=== PATIENT | female | born 1950 | race Caucasian/White ===

== ENCOUNTER 2016-12-12 00:40 | Observation (INO) | payer MEDICARE, OTHER ==
[2016-12-12 01:57] LABS: Troponin I 0.087 ng/mL (< 0.028)
[2016-12-12] MEDS ORDERED: Enoxaparin Sodium 80 MG/0.8 ML SYRINGE ONE (02:30)
[2016-12-12] MEDS ORDERED: HYDROcodone/Acetaminophen 5/325 mg Tablet PO PRN (03:05)
[2016-12-12] MEDS ORDERED: HYDROcodone/Acetaminophen 10/325 mg Tablet PO PRN (03:05)
[2016-12-12] MEDS ORDERED: Ondansetron ODT 4 MG TAB PO PRN (03:05)
[2016-12-12] MEDS ORDERED: Acetaminophen 325 MG TAB PO PRN (03:05)
[2016-12-12 03:27] LABS: #Basophils 0.1 thou/uL (0.0-0.2); #Eosinphils 0.1 thou/uL (0.0-0.7); #Lymphocytes 3.9 thou/uL (1.20-3.40); #Monocytes 0.9 thou/uL (0.11-0.59); %Eosinophils 1.1 % (0.0-10.0); %Lymphocytes 35.2 % (21.0-51.0); %Monocytes 7.9 % (0.0-10.0); Hematocrit 45.5 % (36.0-47.0); Mean Platelet Volume 6.9 fL (7.4-10.4); Red Blood Cell (RBC) Count 4.98 mill/uL (4.20-5.40); White Blood Cell (WBC) Count 10.9 thou/uL (4.8-10.8)
[2016-12-12 03:33] VITALS: BMI 28.7
[2016-12-12 03:40] LABS: Anion Gap 15 mmol/L (10-20); BUN (Urea Nitrogen) 18 mg/dL (9.8-20.1); Calc. Creatinine Clearance 77 mL/min (70-130); Calcium 10.2 mg/dL (7.8-10.44); Carbon Dioxide 25 mmol/L (23-31); Chloride 106 mmol/L (98-107); Estimated GFR-MDRD 61
[2016-12-12 03:46] LABS: Troponin I 0.098 ng/mL (< 0.028)
[2016-12-12] MEDS ORDERED: Nitroglycerin 2% Ointment 1 INCH/1 GM Packet TOP SCH (06:00)
[2016-12-12 08:30] VITALS: BP 115/60; TEMP 97.4
[2016-12-12] MEDS ORDERED: Aspirin 325 MG TAB PO SCH (09:00)
[2016-12-12] MEDS ORDERED: Metoprolol Tartrate 25 MG TAB PO SCH (09:00)
[2016-12-12] MEDS ORDERED: Famotidine/PF 20 mg/2ml Vial SLOW IVP SCH (09:00)
--- NOTE | 2016-12-12 09:24 | HP ---
DATE OF ADMISSION: 12/12/2016 PRIMARY CARE PHYSICIAN: Dr. Anabell Slaughter. PRIMARY UROLOGY TEACHER: Dr. Jesus Jones at [facility]. CHIEF COMPLAINT: Fast heart rate. HISTORY OF PRESENT ILLNESS: Ms. James a 66-year-old [place] female with a history of paroxysmal ta chyarrhythmia of unknown etiology, cardiomyopathy. She thinks hypertrophic, and diabetes mellitus, type 2, and now subclinical after weight loss. She presents to the Emergency Department in [place] today with complaints of palpitations. She typically has spells which will have 1 to 2 minutes long episodes of feeling her heart race, but it will spontaneously resolve. Tonight, it persisted for over an hour. She knows that it initially started up in the 130s, did freddy p down to 120s and thought it was over. It continued and got as high as the mid 150s. She develope d some chest tightness with radiation up into her right neck and right jaw. She has some shortness of breath, without nausea, vomiting, or diaphoresis. This worried her, so [facility]. She has been on a trip to [place] in the last few weeks. There was concern that maybe she had got bl ood clot that caused a problem. She denies any fevers or chills, no diarrhea or constipation, is no w spontaneously resolved, and has heart rate in the 60s and regular. She does have a headache in th e bitemporal region that is constant and rated at 2 to 3/10. No visual changes, no aura. In the emergency department, her troponin was noted to be 0.040. We were called for admission for gabriel grimes workup. They did attempt to transfer the patient to the [facility] to see her Cardiology Team, however, they appare ntly had no beds available and refused transfer. No further current complaints. She is feeling much better at this point. Repeat troponin came back at 0.087, and the ER has ordered and is about to administer a dose of Lovenox. No other current co mplaints. PAST MEDICAL HISTORY: 1. Cardiomyopathy. 2. Diabetes mellitus, type 2, hemoglobin A1c is around 6, off of medication at this point. 3. Hypothyroidism. 4. Hypertension. 5. Possible tachyarrhythmia. PAST SURGICAL HISTORY: 1. Bilateral plantar fascia release. 2. Cholecystectomy. 3. Hysterectomy. 4. PTCA without stent placement or balloons in 2013. HOME MEDICATIONS: 1. Diltiazem CD of 120 mg p.o. daily. 2. Valsartan, dose unknown. She was recently on losartan 100 mg daily, and converted over. 3. Levothyroxine 75 mcg daily. 4. Aspirin 81 mg daily. ALLERGIES: To MORPHINE SULFATE and LATEX GLOVES. CARDIAC HISTORY: She had an echocardiogram in 05/2016, and it was that told that it was \\\\"better\\\\ " and then when she first met her warp tension tester, she thinks her last stress test was some 2 years ago . FAMILY HISTORY: Significant for cerebrovascular disease, cancers, and aortic aneurysm. SOCIAL HISTORY: Negative for IV drug abuse, alcohol, and tobacco. She did smoke 2 packs per day fo r some 28 years, but quit in 1993. REVIEW OF SYSTEMS: A 10-point review of systems was performed, negative for all other systems excep t as stated as per HPI. PHYSICAL EXAMINATION: VITAL SIGNS: Temperature 97.5, pulse 84, blood pressure 116/73, respiratory rate 14, satting 97% on room air. GENERAL: She is awake. She is alert. She is oriented x3. She is a well-developed, well-nourished white [place] female, appears to be in no distress. HEENT: Normocephalic, atraumatic. Pupils are equal, round, and reactive bilaterally. Mucous membr anes are moist, had no visible lesion. No thrush. NECK: Supple without lymphadenopathy, JVD, or thyromegaly. Normal carotid upstroke without bruits. LUNGS: Clear. No wheezes, no rales, no rhonchi. She has no prolonged expiratory phase. She has g ood air movement. Symmetrical chest excursion. CARDIOVASCULAR: Normal S1 and S2. I do not appreciate murmurs. No S3 or S4. No rubs. ABDOMEN: Soft, nontender, and nondistended with normoactive bowel sounds present in all 4 quadrants . EXTREMITIES: With no cyanosis, no clubbing, and no edema. She has 1+ peripheral pulses in both fee t. SKIN: Warm, moist, and well perfused without rashes or lesions. MUSCULOSKELETAL EXAM: Normal to inspection. She has no inflamed or warm joints. She has no palpab le joint effusions. NEUROLOGIC EXAM: Shows cranial nerves II through XII are grossly intact without any focal neurologi c deficits. She has normal strength and normal speech pattern. LABORATORY EVALUATION AND DIAGNOSTICS: CMP is normal. Creatinine is 1.07. Electrolytes, normal, s ugar is 180, and liver functions were normal. D-dimer was negative. INR is 0.9. Troponin I initia lly is 0.040, now at 0.087. BNP was 185. CK-MB was up to 7.5 now. CBC showed white count of 10.9, hemoglobin 15.5, hematocrit of 45.9, and platelets of 264,000. X-ray showed no acute cardiopulmonary disease. ASSESSMENT AND PLAN: 1. Tachyarrhythmia. Unsure what exactly she had. Suspect atrial fibrillation or atrial flutter. We will get a 2D echocardiogram to measure intracardiac pressures. We will watch the patient on tel emetry monitoring. I will continue her diltiazem CD. We will add metoprolol 12.5 b.i.d. 2. Elevated troponin: Likely demand ischemia. We will place patient on oxygen, nitro paste, beta parul, aspirin, and get serial cardiac biomarkers. We will get a 2-D echocardiogram to assess car diac function, I asked Cardiology to see her. Dr. Edmonds's consultation was in place. The patien t does see Dr. Jones over [facility], and if any interventions were to be done, she prefers to go over there at that time. 3. Hypertension. Blood pressure currently normal at 116/73. We will hold her ARB at present while she is on nitro paste and the metoprolol. 4. Hypothyroidism. Continue levothyroxine. 5. Diabetes mellitus, type 2, currently off of medications. Sugar was 180. We will check Accu-Rina ks and use sliding scale insulin as necessary. 6. Cardiomyopathy, possibly hypertrophic: We will follow up on the echocardiogram. The patient was placed in the observation with telemetry monitoring. Recommendation we get more inf ormation back.
--- NOTE | 2016-12-12 11:06 | DIS ---
DISCHARGE DIAGNOSES: 1. Palpitations. 2. Elevated troponin I. 3. History of cardiomyopathy. 4. History of tachyarrhythmia. 5. Hypothyroidism. 6. Diabetes mellitus type 2, diet managed. 7. Hypertension, stable. CONSULTATIONS: None. PERTINENT LABORATORY AND X-RAY FINDINGS: Troponin I ranged between 0.040-0.098. Complete metabolic profile within normal limits. CBC showed a white blood cell count 10.9, hemoglobin 15, hematocrit 46, platelet count 291 with normal differential. Portable chest x-ray dated 12/11/2016 showed no ac ryan cardiopulmonary process. HOSPITAL COURSE: The patient was observed on the telemetry unit after initially presenting with manuel st pain with associated palpitations. The patient underwent general evaluation with a noted elevate d troponin I ranging between 0.040 to 0.098. Telemetry monitoring did not show evidence of tachycar gurea or tachyarrhythmia with sinus bradycardia noted throughout the hospital course. The patient was resumed on her regular outpatient medication regimen to include diltiazem and valsartan. The patie nt remained clinically stable overall during the hospital stay; however, decided to pursue further c ardiac workup with her primary reroller hand at [facility]. The patient is wishi ng to leave the hospital for followup with her primary reroller hand on 12/12/2016. Overall, the pat ient clinically stable and ready for discharge 12/12/2016. DISCHARGE MEDICATIONS: 1. Enteric coated aspirin 81 mg 1 tab p.o. daily. 2. Diltiazem ER 120 mg p.o. daily. 3. Vascepa 2 grams p.o. daily. 4. Levothyroxine 75 mcg 1 tab p.o. daily. 5. Valsartan 160 mg p.o. daily. FOLLOWUP: Patient will follow up with her primary care provider, Dr. Anabell Slaughter within 7 days. Th e patient will follow up with Dr. Jesus Jones, Cardiology Service at [facility] on 12/12/2016. CONDITION ON DISCHARGE: Fair. ACTIVITY: Ad eav. DIET: Heart healthy. CODE STATUS: Full. DISPOSITION: Home on 12/12/2016.
== END 2016-12-12 10:43 | disposition home or self-care (01) ==
LOC: ERS 00:40 → 2SW 01:17
PROVIDERS: ADMIT Internal Medicine Infectious Disease; ATTEND Internal Medicine Infectious Disease
DX: R00.2 Palpitations (principal); R77.8 Other specified abnormalities of plasma proteins; I11.9 Hypertensive heart disease without heart failure; E03.9 Hypothyroidism, unspecified; E11.9 Type 2 diabetes mellitus without complications; R07.9 Chest pain, unspecified; Z79.82 Long term (current) use of aspirin; Z79.899 Other long term (current) drug therapy; Z88.5 Allergy status to narcotic agent; Z91.040 Latex allergy status; Z98.61 Coronary angioplasty status; Z90.49 Acquired absence of other specified parts of digestive tract; Z90.710 Acquired absence of both cervix and uterus; Z98.890 Other specified postprocedural states; Z86.79 Personal history of other diseases of the circulatory system; Z85.9 Personal history of malignant neoplasm, unspecified; Z87.891 Personal history of nicotine dependence
CPT/HCPCS: 80048; 82550; 82553 ×2; 84484 ×2; 85025; 93005; 96372; 99285; G0378; 36415; J1650; S0028